=== PATIENT | male | born 1995 | race Caucasian/White ===

== ENCOUNTER 2016-09-30 14:21 | Emergency (ER) | payer SELFPAY ==
[2016-09-30 14:47] VITALS: BP 159/88; PULSE 70; RESP 22; TEMP 97.5; O2SAT 100
--- NOTE | 2016-09-30 15:10 | CPEKG ---
Heart Rate: 73 RR Interval: 822 P-R Interval: 164 QRSD Interval: 96 QT Interval: 404 QTC Interval: 446 P Ayr: 53 QRS Ayr: 60 T Wave Ayr: 66 EKG Severity - ABNORMAL ECG - EKG Impression: SINUS RHYTHM Electronically Signed By: Brandon De Leon 30-Sep-2016 15:58:37
[2016-09-30 15:34] LABS: % IMMATURE GRANULYOCYTES 0.2 % (0.0-1.1); ABSOLUTE IMMATURE GRANULOCYTES 0.02 10^3/uL (0.00-0.10); ADD DIFF? NO; ADD MORPH? NO; ADD SCAN? NO; ATYPICAL LYMPHOCYTE FLAG 10 (0-99); FRAGMENT RBC FLAG 0 (0-99); HEMOGLOBIN 15.8 g/dL (13.7-17.5); LEFT SHIFT FLG 0 (0-99); LIPEMIA HEMOLYSIS FLAG 90 (0-99); MEAN CELL HEMOGLOBIN 30.8 pg (27.9-34.1); MEAN CELL HEMOGLOBIN CONCENTR. 35.1 g/dL (32.4-36.7); MEAN CELL VOLUME 87.7 fL (81.5-99.8); MEAN PLATELET VOLUME 10.4 fL (8.7-11.7); PLATELET CLUMPS FLAG 10 (0-99); PLATELET COUNT 227 10^3/uL (150-400); RED BLOOD CELL COUNT 5.13 10^6/uL (4.40-6.38); RED CELL DISTRIBUTION WIDTH 12.7 % (11.5-15.2)
--- NOTE | 2016-09-30 15:36 | UCPHY ---
H & P Patient Type: New Chief Complaint Nursing Narrative: numbness tingling starting at 1315 today after lunch in hands radiating up arms to face. also N/T in BLE below knees. Time Seen by Provider: 09/30/16 15:05 HPI/ROS: This patient presents with a chief complaint of numbness and tingling in the finger tips of both hands which began approximately 3.5 hours prior to my evaluation. The numbness and tingling spread proximally and ultimately involve the face and both lower legs. He noticed that his hands were cramped and his lips were tight such that it was difficulty moving them. He walked with a slow gait and felt somewhat unsteady. The patient also noticed a felt quite dizzy and his mouth was dry but denied shortness of breath or chest pain. He also denies headache, nausea, vomiting, abdominal pain, or recent URI symptoms. Currently feels that his symptoms are improving his hands are not cramped and the numbness and tingling is retracting. His stress level is not high. He has no previous history of anything similar. REVIEW OF SYSTEMS: Constitutional: No malaise, no fever Eyes: Denies difficulty seeing or any blurring ENT: Dry mouth, no sore throat, nasal congestion or ear pain Respiratory: No shortness of breath, no recent cough Cardiac: Denies chest pain or palpitations Gastrointestinal: Denies nausea, vomiting, diarrhea or abdominal pain Genitourinary: No complaints Musculoskeletal: Denies neck or back pain Skin: No rash Neurological: No headache, see above - Personal History Current Tetanus Diphtheria and Acellular Pertussis (TDAP): Unsure - Medical/Surgical History Hx Asthma: Yes Hx Chronic Respiratory Disease: No Hx Diabetes: No Hx Cardiac Disease: No Hx Renal Disease: No Hx Cirrhosis: No Hx Alcoholism: No Hx HIV/AIDS: No Hx Splenectomy or Spleen Trauma: No Other PMH: exercise-induced asthma - Family History Significant Family History: No pertinent family hx - Social History Smoking Status: Former smoker - Physical Exam Exam: GENERAL: Well-appearing, well-nourished and in no acute distress. HEAD: Atraumatic, normocephalic. EYES: Pupils equal round and reactive to light, extraocular movements intact, sclera anicteric, conjunctiva are normal. ENT: TMs normal, nares patent, oropharynx clear without exudates. Moist mucous membranes. NECK: Normal range of motion, supple without lymphadenopathy or JVD. LUNGS: Breath sounds clear to auscultation bilaterally and equal. No wheezes rales or rhonchi. HEART: Regular rate and rhythm without murmurs, rubs or gallops. ABDOMEN: Soft, nontender, normoactive bowel sounds. No guarding, no rebound. No masses appreciated. EXTREMITIES: Normal range of motion, no pitting or edema. No clubbing or cyanosis. NEUROLOGICAL: Cranial nerves II through XII grossly intact. Normal speech, normal gait. No motor dysfunction PSYCH: Normal mood, normal affect. SKIN: Warm, dry, normal turgor, no visible rashes or lesions. Constitutional: Initial Vital Signs Temperature (C) 36.4 C 09/30/16 14:44 Heart Rate 70 09/30/16 14:44 Respiratory Rate 22 H 09/30/16 14:44 Blood Pressure 159/88 H 09/30/16 14:44 O2 Sat (%) 100 09/30/16 14:44 Allergies/Adverse Reactions: No Known Allergies Allergy (Unverified 09/30/16 14:44) Home Medications: Medication Instructions Recorded NK [No Known Home Meds] 09/30/16 Medical Decision Making - Diagnostics EKG Interpretation: An EKG is normal ED Course/Re-evaluation: On discharge the patient was feeling almost normal with some very slight tingling in the right face. He denied any dizziness and his mouth was no longer dry. He had developed no new symptoms. Differential Diagnosis: I believe that this patient's symptoms are related to hyperventilation syndrome based on his symptoms, is elevated oxygen saturation on arrival and is low CO2 on his metabolic panel. There is nothing else that would explain this and I certainly do not believe that he has had a stroke or any other neurologic event. - Data Points Laboratory Results: Laboratory Results 09/30/16 15:04 09/30/16 15:04 09/30/16 09/30/16 15:04 15:04 WBC 9.73 10^3/uL H 10^3/uL (3.80-9.50) RBC 5.13 10^6/uL 10^6/uL (4.40-6.38) Hgb 15.8 g/dL g/dL (13.7-17.5) Hct 45.0 % % (40.0-51.0) MCV 87.7 fL fL (81.5-99.8) MCH 30.8 pg pg (27.9-34.1) MCHC 35.1 g/dL g/dL (32.4-36.7) RDW 12.7 % % (11.5-15.2) Plt Count 227 10^3/uL 10^3/uL (150-400) MPV 10.4 fL fL (8.7-11.7) Neut % (Auto) 71.6 % % (39.3-74.2) Lymph % (Auto) 20.8 % % (15.0-45.0) [place] % (Auto) 5.9 % % (4.5-13.0) Eos % (Auto) 1.1 % % (0.6-7.6) Baso % (Auto) 0.4 % % (0.3-1.7) Nucleat RBC Rel Count 0.0 % % (0.0-0.2) Absolute Neuts (auto) 6.97 10^3/uL H 10^3/uL (1.70-6.50) Absolute Lymphs (auto) 2.02 10^3/uL 10^3/uL (1.00-3.00) Absolute Monos (auto) 0.57 10^3/uL 10^3/uL (0.30-0.80) Absolute Eos (auto) 0.11 10^3/uL 10^3/uL (0.03-0.40) Absolute Basos (auto) 0.04 10^3/uL 10^3/uL (0.02-0.10) Absolute Nucleated RBC 0.00 10^3/uL 10^3/uL (0-0.01) Immature Gran % 0.2 % % (0.0-1.1) Immature Gran # 0.02 10^3/uL 10^3/uL (0.00-0.10) Sodium 145 mEq/L H mEq/L (134-144) Potassium 3.8 mEq/L mEq/L (3.5-5.2) Chloride 105 mEq/L mEq/L (97-110) Carbon Dioxide 19 mEq/l L mEq/l (22-31) Anion Gap 21 mEq/L H mEq/L (8-16) BUN 15 mg/dL mg/dL (7-23) Creatinine 1.1 mg/dL mg/dL (0.7-1.3) Estimated GFR > 60 Glucose 99 mg/dL mg/dL (70-100) Calcium 10.0 mg/dL mg/dL (8.5-10.4) Total Bilirubin 0.4 mg/dL mg/dL (0.1-1.4) AST 77 IU/L H IU/L (17-59) ALT 97 IU/L H IU/L (21-72) Alkaline Phosphatase 59 IU/L IU/L (38-126) Total Protein 7.8 g/dL g/dL (6.3-8.2) Albumin 4.6 g/dL g/dL (3.5-5.0) Departure - Departure Disposition: Home, Routine, Self-Care Clinical Impression: Numbness and tingling, Hyperventilation syndrome Condition: Good Instructions: Paresthesia (ED), Hyperventilation (ED) Additional Instructions: If this reoccurs you should be re-evaluated especially if symptoms do not resolve in a short period Of time. If this becomes recurrent you should be evaluated more fully. Referrals: NONE *PRIMARY CARE P,. [Primary Care Provider] - As per Instructions - PQRS PQRS Measurement: Not applicable
[2016-09-30 15:43] LABS: ALANINE AMINOTRANSFERASE 97 IU/L (21-72); ALBUMIN 4.6 g/dL (3.5-5.0); ALKALINE PHOSPHATASE 59 IU/L (38-126); ANION GAP 21 mEq/L (8-16); ASPARTATE AMINOTRANSFERASE 77 IU/L (17-59); BILIRUBIN,TOTAL 0.4 mg/dL (0.1-1.4); CARBON DIOXIDE 19 mEq/l (22-31); CHLORIDE 105 mEq/L (97-110); CREATININE 1.1 mg/dL (0.7-1.3); GLOMERULAR FILTRATION RATE > 60; GLUCOSE 99 mg/dL (70-100); POTASSIUM 3.8 mEq/L (3.5-5.2); SODIUM 145 mEq/L (134-144); TOTAL PROTEIN 7.8 g/dL (6.3-8.2)
== END 2016-09-30 16:36 | disposition home or self-care (01) ==
LOC: CED 14:21
DX: R20.2 Paresthesia of skin (principal); F45.8 Other somatoform disorders
CPT/HCPCS: 80053-PO; 85025-PO; 93010-PO; 99205-PO; G0463-PO